=== PATIENT | female | born 1930 | race Caucasian/White ===

== ENCOUNTER 2017-06-05 08:42 | Day surgery (SDC) | payer MEDICARE, BC ==
[2017-06-02 08:28] VITALS: BMI 20.9
--- NOTE | 2017-06-05 05:36 | HP ---
HISTORY AND PHYSICAL CHIEF COMPLAINT: Fluid in both ears. HISTORY OF PRESENT ILLNESS: This patient is a very pleasant 87-year-old female who is referred to my office by [facility] for evaluation of a bilateral conductive hearing loss. At the time that the patient was seen in my office she stated she had previously had an upper respiratory tract infection, which resolved without difficulty. However, she has noticed that since that time both ears have been plugged. She wears bilateral hearing aids. 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 It was therefore recommended that the patient undergo a bilateral myringotomy with insertion of ventilation tubes under IV sedation with MAC or general anesthesia, depending upon the anesthesia department's preference. PAST MEDICAL HISTORY: Past medical history reveals patient has allergies to PENICILLIN, CIPRO, and SULFA. Previous surgeries include cataract surgery, tonsillectomy, adenoidectomy, appendectomy. The patient is 0 para, 0 and she has also had several skin cancers removed. MEDICATIONS: Current medications include Spiriva, Symbicort, isosorbide, and nitroglycerin. REVIEW OF SYSTEMS: Cardiovascular is positive for ASHD. 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 The remainder of the review of systems unremarkable. PHYSICAL EXAMINATION: The patient is a pleasant 87-year-old female who is alert and cooperative. HEENT EXAMINATION: Patient is normocephalic. Tympanic membranes are dull bilaterally with fluid in both middle ear spaces. Pupils are equal, round, react to light and accommodation. Extraocular movements are within normal limits. Intranasal examination reveals moderate septal deviation with compensatory hypertrophy of the inferior turbinates. Examination of the oropharynx, cranial nerves 2 through 12 and the remainder of the head and neck exam are within normal limits. CHEST/CARDIOVASCULAR: Both lung mendez are clear to percussion and auscultation. The patient is in regular sinus rhythm. S1 and S2 are present without evidence of any murmurs, S3s or S4s. Peripheral pulses are bilaterally symmetrical and within normal limits. ABDOMEN: There is no evidence any masses, megaly, or tenderness. The abdomen is soft. Skin is unremarkable. Musculoskeletal and neurological are within normal limits. PELVIC/RECTAL EXAM: The pelvic rectal exam is deferred at this time because the patient has this done on a regular basis at her family physician's office. The remainder of the physical exam is essentially unremarkable. IMPRESSION: Chronic bilateral serous otitis media. PLAN: The patient is scheduled to undergo a bilateral myringotomy with insertion of ventilation tubes under either IV sedation with MAC or general anesthesia depending upon the anesthesia department's preference in the a.m. ATTENTION RNS IN THE PRE-SURGICAL AREA: I have not ordered any pre-surgical prophylactic antibiotics for this patient. Therefore, if the pharmacy department sends any pre-surgical prophylactic antibiotics to the pre-surgical area for this patient, that order should be cancelled and the medication should be returned to the pharmacy department immediately. Also please make sure that the patient's account is credited appropriately. MMODL / IJN: [id number] /
[~2017-06-05 08:42] MED LIST: LACTATED RINGERS 1,000 ML IV SCH; Pre Op ABX Message 1 EACH MISC MISCELLANE ONE
[2017-06-05] MEDS ORDERED: LIDOCAINE 1% 20 ML VIAL (10MG/ML) FOR IV START INTRADERMA ONE (09:00)
[2017-06-05 09:21] VITALS: RESP 16; TEMP 98.2
[2017-06-05] MEDS ORDERED: PROPOFOL 10 MG/ML 20 ML VIAL IV ONE (10:11)
[2017-06-05] MEDS ORDERED: LIDOCAINE 1% INJ 10MG/ML (20 ML MDV) ONE (10:11)
[2017-06-05] MEDS ORDERED: MIDAZOLAM 2 MG/2 ML VIAL ONE (10:11)
[2017-06-05] MEDS ORDERED: NEOMYCIN-POLYMYXIN-HC (3.5-10,000-10 MG) OTIC DROPS 10 ML BTL BOTH EARS STA (10:18)
[2017-06-05 11:36] VITALS: BP 126/70; PULSE 70
--- NOTE | 2017-06-05 23:07 | OP ---
OPERATIVE REPORT PREOPERATIVE DIAGNOSIS: Chronic bilateral serous otitis media. POSTOPERATIVE DIAGNOSIS: Chronic bilateral serous otitis media. ANESTHESIA: General. OPERATIVE PROCEDURE: Bilateral myringotomy with insertion of Activent Gadiel-Bobbin plastic ventilation tubes. SURGEON: Dr. Mayorga. COMPLICATIONS: None. ESTIMATED BLOOD LOSS: Zero. PROCEDURE DESCRIPTION: The patient was placed on the operating table in the supine position after uneventful induction and IV sedation, satisfactory general anesthesia was obtained. Next, the operating microscope was brought into position over the patient?s right ear where after insertion of a #3 aural speculum, the external canal was cleansed of all wax and debris. The myringotomy knife was used to make an incision in the anterior inferior quadrant of the right tympanic membrane. The middle ear space was suctioned free of all fluid and a 1.1 mm Gadiel bobbin ventilation tube was inserted without any difficulty. Attention was then directed to the left ear where the same procedure was carried out using the operating microscope, #3 aural speculum, the external auditory canal was cleansed of all wax and debris. The myringotomy knife was used to make an incision in the anterior inferior quadrant of the left tympanic membrane and the middle ear space was suctioned free of all fluid. A 1.1 mm Gadiel bobbin ventilation tube was inserted without any difficulty. At this point, the procedure was terminated. There were no intraoperative complications. The patient tolerated the procedure well and was returned to the Recovery Room in satisfactory condition. MMODL / IJN: [id number] /
== END 2017-06-05 11:41 | disposition home or self-care (01) ==
LOC: OR 08:42
PROVIDERS: ATTEND Otolaryngology
DX: H65.23 Chronic serous otitis media, bilateral (principal); H90.0 Conductive hearing loss, bilateral; J44.9 Chronic obstructive pulmonary disease, unspecified; Z88.0 Allergy status to penicillin; Z88.1 Allergy status to other antibiotic agents; Z88.2 Allergy status to sulfonamides; Z79.51 Long term (current) use of inhaled steroids; Z79.899 Other long term (current) drug therapy; Z99.81 Dependence on supplemental oxygen
CPT/HCPCS: 69436; J2250; J2001; J2704